=== PATIENT | male | born 1980 | race Caucasian/White ===

== ENCOUNTER 2020-06-19 16:18 | Outpatient (REF) | payer OTHER, SELFPAY ==
[2020-06-22 12:21] LABS: SARS-CoV-2 RNA Undetected (Undetected); SARS-CoV-2 Specimen Source Nasal
== END 2020-06-19 16:38 ==
LOC: NCHCN 16:18
PROVIDERS: Visit Provider Internal Medicine
DX: Z20.828 Contact with and (suspected) exposure to other viral communicable diseases (principal)
CPT/HCPCS: U0003

== ENCOUNTER 2022-06-27 10:53 | Outpatient (REF) | payer OTHER, MEDICAID, SELFPAY ==
[2022-06-27 16:21] LABS: Anion Gap 8.3 mmol/L (3-11); BUN 15 mg/dL (7-18); CO2 26.7 mmol/L (21.0-32.0); Calcium 9.1 mg/dL (8.5-10.1); Calculated LDL 116 mg/dL (<100); Chloride 106 mmol/L (98-107); Cholesterol 204 mg/dL (<200); Estimated GFR 97.58 (mL/min/1.73m2); Glucose 108 mg/dL (74-106); HDL Cholesterol 44 mg/dL (40-60); Potassium 4.3 mmol/L (3.5-5.1); Sodium 141 mmol/L (136-145); Triglyceride 222 mg/dL (<150)
== END 2022-06-27 10:54 | disposition home or self-care (01) ==
LOC: NCHCN 10:53
PROVIDERS: Visit Provider Family Medicine
DX: E78.5 Hyperlipidemia, unspecified (principal); Z00.00 Encounter for general adult medical examination without abnormal findings
CPT/HCPCS: 80048; 80061

== ENCOUNTER 2025-06-09 18:34 | Outpatient (REF) | payer OTHER, SELFPAY ==
[2025-06-09 21:29] LABS: ALT 45 U/L (16-63); AST 59 U/L (15-37); Albumin 4.4 g/dL (3.4-5.0); Alkaline Phosphatase 65 U/L (46-116); Anion Gap 10.1 mmol/L (3-11); BUN 16 mg/dL (7-18); Bilirubin, Total 0.5 mg/dL (0.2-1.0); CO2 26.9 mmol/L (21.0-32.0); Calcium 9.3 mg/dL (8.5-10.1); Calculated LDL 153 mg/dL (<100); Chloride 102 mmol/L (98-107); Cholesterol 233 mg/dL (<200); Estimated GFR 95.77 (mL/min/1.73m2); Glucose 85 mg/dL (74-106); HDL Cholesterol 57 mg/dL (>or=40); Potassium 4.1 mmol/L (3.5-5.1); Sodium 139 mmol/L (136-145); Total Protein 7.8 g/dL (6.4-8.2); Triglyceride 116 mg/dL (<150)
[2025-06-09 21:59] LABS: Hemoglobin A1C 5.3 % (<5.7)
== END 2025-06-09 18:35 | disposition home or self-care (01) ==
LOC: NCHCN 18:34
PROVIDERS: PCP Family Medicine; Visit Provider Family Medicine
DX: E66.3 Overweight (principal); Z00.00 Encounter for general adult medical examination without abnormal findings; R73.01 Impaired fasting glucose
CPT/HCPCS: 80053; 80061; 83036

== ENCOUNTER 2025-09-09 17:44 | Outpatient (REF) | payer OTHER, SELFPAY ==
[2025-09-09 21:39] LABS: ALT 24 U/L (10-49); AST 22 U/L (<34); Albumin 4.8 g/dL (3.2-5.0); Alkaline Phosphatase 68 U/L (46-116); Bilirubin, Direct 0.2 mg/dL (<=0.3); Bilirubin, Total 0.50 mg/dL (0.2-1.2); Total Protein 7.5 g/dL (5.7-8.2)
== END 2025-09-09 17:45 | disposition home or self-care (01) ==
LOC: NCHCN 17:44
PROVIDERS: PCP Family Medicine; Visit Provider Family Medicine
DX: R74.01 Elevation of levels of liver transaminase levels (principal)
CPT/HCPCS: 80076